=== PATIENT | female | born 1950 | race Two or more races ===

== ENCOUNTER 2021-09-19 01:07 | Emergency (ER) | payer OTHER ==
[~2021-09-19] VITALS: Ht 162.6 cm; Wt 60.8 kg
[2021-09-19] MEDS ORDERED: GLUMETZA500 MG PO (01:27)
[2021-09-19] MEDS ORDERED: FENOFIBRATE50 MG (01:28)
[2021-09-19] MEDS ORDERED: ALBUTEROL2.5 MG/3 M IH (08:23)
[2021-09-19] MEDS ORDERED: ZYNCOF 20-400120 ML PO (08:23)
[2021-09-19] MEDS ORDERED: SYMBICORT 16010.2 GM IH (08:23)
== END 2021-09-19 08:59 ==
LOC: ER 01:07
DX: U07.1 COVID-19 (principal); J98.01 Acute bronchospasm; E11.9 Type 2 diabetes mellitus without complications

== ENCOUNTER 2021-10-17 08:54 | Emergency (ER) | payer OTHER ==
[~2021-10-17] VITALS: Ht 162.6 cm; Wt 589.7 kg
[~2021-10-17 08:54] MED LIST: ALBUTEROL2.5 MG/3 M IH; FENOFIBRATE50 MG; GLUMETZA500 MG PO; SYMBICORT 16010.2 GM IH; ZYNCOF 20-400120 ML PO
== END 2021-10-17 12:15 | disposition home or self-care (01) ==
LOC: ER 08:54
DX: K52.89 Other specified noninfective gastroenteritis and colitis (principal); Z88.1 Allergy status to other antibiotic agents